=== PATIENT | female | born 1935 | race Caucasian/White ===

== ENCOUNTER 2019-01-28 18:57 | Inpatient (IN) | payer MEDICARE, OTHER ==
[~2019-01-28] VITALS: Ht 139.7 cm; Wt 42.6 kg
[2019-01-28 20:00] VITALS: BP 125/73
[2019-01-28] MEDS ORDERED: MAGNESIUM HYDROXIDE 30 ML UDC PO PRN (20:30)
[2019-01-28] MEDS ORDERED: MAG HYDROX/AL HYDROX/SIMETH 30 ML UDC PO PRN (20:30)
[2019-01-28] MEDS ORDERED: TEMAZEPAM 7.5 MG CAPSULE PO PRN (20:30)
[2019-01-28] MEDS ORDERED: clonazePAM 0.5 MG TABLET PO PRN (20:30)
[2019-01-28] MEDS ORDERED: ACETAMINOPHEN 325 MG TABLET PO PRN (20:30)
[2019-01-28] MEDS ORDERED: ALBU2.5V38 NEB (20:37)
[2019-01-28] MEDS ORDERED: IPRA0.2S49 NEB (20:38)
[2019-01-28] MEDS ORDERED: MIRT15TA7 PO (20:39)
[2019-01-28] MEDS ORDERED: POTA20TA83 PO (20:42)
[2019-01-28] MEDS ORDERED: APIX2.5T PO (20:43)
[2019-01-28] MEDS ORDERED: FURO40TA5 PO (20:44)
[2019-01-28] MEDS ORDERED: METO-357 PO (20:45)
[2019-01-28] MEDS ORDERED: SPIR25TA6 PO (20:45)
[2019-01-28] MEDS ORDERED: ALEN70TA6 PO (20:47)
[2019-01-28] MEDS ORDERED: BECL10.6 IH (20:49)
[2019-01-28] MEDS ORDERED: DOCU100C36 PO (20:56)
[2019-01-28] MEDS ORDERED: DILT-32 PO (20:56)
[2019-01-28] MEDS ORDERED: FLUT16SP BNOSTRILS (20:57)
[2019-01-28] MEDS ORDERED: MONT10TA22 PO (20:58)
[2019-01-28] MEDS ORDERED: POLY255P19 PO (20:59)
[2019-01-28] MEDS ORDERED: PRAV40TA PO (21:00)
[2019-01-28] MEDS ORDERED: SENN-168 PO (21:02)
[2019-01-28] MEDS ORDERED: OMEP20CA10 PO (21:05)
[2019-01-28 23:00] VITALS: BP 120/68
[2019-01-28] MEDS ORDERED: IPRATROPIUM NEB FS 0.5 MG/2.5 ML AMPUL.NEB NEB PRN (23:00)
--- NOTE | 2019-01-28 23:34 | NUR ---
ADMISSION NOTES: ADMITTED THIS 83 Y/O FEMALE PATIENT ADMIT FROM [facility], PT IS ON 5150 HOLD FOR GRAVELY DISABLE , PER HOLD PT. UNABLE TO FORMLATE A PLAN FOR SELF CARE, UPON FACE TO FACE ASSESSMENT PATIENT IS A&O X1 ,2 DISHELVED, DISORGINZE, EASILY GETS AGITATED, PT. IS POOR HISTORIAN, POOR INSIGHT ,POOR JUDGEMENT , POOR HYGINE , PT. REFUSED TO TAKE SHOWER AT THIS TIME , AND PT. REFUSED TO SIGN ADMISSION PAPERS ,V/S MD NASIR AWARE AND NOTIFIED OF THE ADMISSION, SKIN ASSESSMENT DONE . PICTURE TAKEN AND PLACED IN THE CHART, ENCOURAGED PT. VERBALIZED ANY FEELING CONCERN TO STAFF, ORIENT TO UNIT POLICY, WILL CONTINUE TO MONITOR FOR Q15 SAFETY AND BEHAVIOR.
[2019-01-29] MEDS ORDERED: ALBUTEROL FS 2.5 MG/3 ML VIAL.NEB NEB PRN (01:30)
[2019-01-29 07:09] LABS: BASOPHILS # (AUTO) 0.1 /CMM (0.0-0.2); BASOPHILS % (AUTO) 1.4 % (0.0-2.0); EOSINOPHILS % (AUTO) 1.5 % (0.0-6.0); HEMATOCRIT 32 % (33-45); HEMOGLOBIN 10.5 g/dL (11.5-14.8); LYMPHOCYTES # (AUTO) 1.5 /CMM (0.8-4.8); LYMPHOCYTES % (AUTO) 24.3 % (20.0-44.0); MEAN CORPUSCULAR HGB CONC 33 g/dl (31.0-36.0); MEAN CORPUSCULAR VOLUME 84 fL (82-100); MONOCYTES # (AUTO) 0.5 /CMM (0.1-1.30); NEUTROPHILS % (AUTO) 64.8 % (43.0-81.0); PLATELET COUNT (AUTO) 320 /CMM (150-450); RED BLOOD CELL COUNT(AUTO) 3.86 MIL/uL (4.0-5.2); WHITE BLOOD COUNT (AUTO) 6.2 K/uL (4.3-11.0)
[2019-01-29 07:19] LABS: CHOLESTEROL 137 mg/dL (<200); HDL CHOLESTEROL 36 mg/dL (40-60); LDL 90 mg/dL (0-99); TRIGLYCERIDES 97 mg/dL (30-150)
[2019-01-29 07:21] LABS: ALANINE AMINOTRANSFERASE 15 U/L (12-78); ALBUMIN 2.6 g/dL (3.4-5.0); ALKALINE PHOSPHATASE 146 U/L (46-116); ASPARTATE AMINOTRANSFERASE 18 U/L (15-37); BILIRUBIN,TOTAL 0.8 mg/dL (0.2-1.0); CALCIUM, SERUM 8.7 mg/dL (8.5-10.1); CARBON DIOXIDE 24 mmol/L (21-32); CHLORIDE 104 mmol/L (98-107); CREATININE 0.9 mg/dL (0.6-1.3); GLUCOSE 103 mg/dL (74-106); POTASSIUM 3.5 mmol/L (3.5-5.1); SODIUM SERUM 140 mmol/L (136-145); TOTAL PROTEIN, SERUM 6.2 g/dL (6.4-8.2); UREA NITROGEN, BLOOD 18 mg/dL (7-18)
[2019-01-29] MEDS ORDERED: OMEPRAZOLE 20 MG CAPSULE.DR PO SCH (07:30)
[2019-01-29] MEDS: DOCUSATE SODIUM 100 MG CAPSULE PO SCH ×2 (09:00→17:00)
[2019-01-29] MEDS: FLUTICASONE PROPIONATE 16 GM BOTTLE NS SCH (09:00)
[2019-01-29] MEDS: SENNOSIDES 8.6 MG TABLET PO SCH ×2 (09:00→17:00)
[2019-01-29] MEDS: DILTIAZEM HCL CD 120 MG PO SCH ×2 (09:00→17:00)
[2019-01-29] MEDS: METOPROLOL SUCCINATE 50 MG TAB.SR.24H PO SCH ×2 (09:00→17:00)
[2019-01-29] MEDS: MONTELUKAST SODIUM (10MG) 10 MG TABLET PO SCH (09:00)
[2019-01-29] MEDS: APIXABAN 2.5 MG TABLET PO SCH ×2 (09:00→17:00)
[2019-01-29] MEDS: SPIRONOLACTONE 25 MG TABLET PO SCH (09:00)
[2019-01-29] MEDS: POLYETHYLENE GLYCOL 3350 17 GM POWD.PACK PO SCH (09:00)
[2019-01-29] MEDS: FUROSEMIDE 40 MG TABLET PO SCH (09:00)
[2019-01-29] MEDS: PANTOPRAZOLE 40 MG TABLET.DR PO SCH (09:20)
--- NOTE | 2019-01-29 09:38 | NUR ---
RN NOTES PATIENT REFUSED ALL MEDICATIONS. EXPLAINED IMPORTANCE OF MEDICATION COMPLIANCE. PATIENT CONTINUED TO REFUSED MEDICATIONS.
[2019-01-29] MEDS: FLUTICASONE/VILANTEROL 1 EACH BLST.W.DEV IH SCH (11:00)
--- NOTE | 2019-01-29 11:54 | NUR ---
RN NOTES PT REFUSED BREO INHALER. EXPLAINED TO PATIENT THE IMPORTANCE OF USING INHALER. PT CONTINUED TO REFUSE.
[2019-01-29] MEDS: QUETIAPINE FUMARATE 25 MG TABLET PO SCH (15:00)
--- NOTE | 2019-01-29 15:59 | NUR ---
Group Note: Pt was unable to participate in group therapy due to her confusion. Pt stated that she was not aware of her current situation and appeared to be disheveled and disorganized.
[2019-01-29 16:00] VITALS: BP 110/71
[2019-01-29] MEDS: ATORVASTATIN 10 MG TABLET PO SCH (17:35)
[2019-01-29 20:00] VITALS: BP 120/73
[2019-01-29] MEDS: MIRTAZAPINE 15 MG TABLET PO SCH (21:20)
[2019-01-30 08:00] VITALS: BP 121/96
[2019-01-30] MEDS: POLYETHYLENE GLYCOL 3350 17 GM POWD.PACK PO SCH (09:00)
[2019-01-30] MEDS: PANTOPRAZOLE 40 MG TABLET.DR PO SCH (09:13)
[2019-01-30] MEDS: SPIRONOLACTONE 25 MG TABLET PO SCH (09:13)
[2019-01-30] MEDS: SENNOSIDES 8.6 MG TABLET PO SCH ×2 (09:13→17:00)
[2019-01-30] MEDS: MONTELUKAST SODIUM (10MG) 10 MG TABLET PO SCH (09:13)
[2019-01-30] MEDS: QUETIAPINE FUMARATE 25 MG TABLET PO SCH ×2 (09:14→17:00)
[2019-01-30] MEDS: METOPROLOL SUCCINATE 50 MG TAB.SR.24H PO SCH ×2 (09:14→17:00)
[2019-01-30] MEDS: FUROSEMIDE 40 MG TABLET PO SCH (09:14)
[2019-01-30] MEDS: DOCUSATE SODIUM 100 MG CAPSULE PO SCH ×2 (09:15→17:00)
[2019-01-30] MEDS: DILTIAZEM HCL CD 120 MG PO SCH ×2 (09:15→17:00)
[2019-01-30] MEDS: APIXABAN 2.5 MG TABLET PO SCH ×2 (09:19→17:00)
[2019-01-30] MEDS: FLUTICASONE/VILANTEROL 1 EACH BLST.W.DEV IH SCH (09:20)
[2019-01-30] MEDS: FLUTICASONE PROPIONATE 16 GM BOTTLE NS SCH (09:21)
--- NOTE | 2019-01-30 11:41 | NUR ---
PATTI called the pt's friend, Erica ([phone]), and was unable to leave a message due to her mailbox being full.
--- NOTE | 2019-01-30 11:42 | NUR ---
Initial Discharge Plan: Pt currently resides in an apartment with her friend, Alexandrea, but she cannot remember the phone number for Alexandrea. Pts apartment is located at [address] [place] [address]; ([phone]). Per pt, she would like to return to her home. PATTI will work with the MD and the pt regarding appropriate discharge planning. SW will form a safe and proper discharge.
--- NOTE | 2019-01-30 11:43 | NUR ---
PATTI called the pt's friend, Erica ([phone]), and was unable to leave a message due to her mailbox being full.
--- NOTE | 2019-01-30 14:18 | NUR ---
PATTI called the pt's friend, Erica ([phone]), and was unable to leave a message due to her mailbox being full.
[2019-01-30 16:00] VITALS: BP 112/66
[2019-01-30] MEDS: ATORVASTATIN 10 MG TABLET PO SCH (17:38)
--- NOTE | 2019-01-30 18:55 | NUR ---
Arrived and received patient in bedroom sleeping. Patient is alert and oriented x2. Patient is Turkish speaking primarily with some Malay. Patient is not medication compliant. Patient is confused, disorganized and withdrawn. Redirected and reoriented patient as needed. Q15 minute safety and behavior checks as needed. Assisted patient in completing ADLs as tolerated. Patient is in bedroom resting with no distress noted at this time. Will continue with plan of care.
[2019-01-30 20:00] VITALS: BP 107/55
[2019-01-30] MEDS: MIRTAZAPINE 15 MG TABLET PO SCH (21:30)
[2019-01-31] MEDS: PANTOPRAZOLE 40 MG TABLET.DR PO SCH (07:30)
[2019-01-31 08:00] VITALS: BP 120/72
[2019-01-31] MEDS: SENNOSIDES 8.6 MG TABLET PO SCH ×2 (09:00→17:05)
[2019-01-31] MEDS: FLUTICASONE PROPIONATE 16 GM BOTTLE NS SCH (09:00)
[2019-01-31] MEDS: DOCUSATE SODIUM 100 MG CAPSULE PO SCH ×2 (09:00→17:05)
[2019-01-31] MEDS: FUROSEMIDE 40 MG TABLET PO SCH (09:00)
[2019-01-31] MEDS: FLUTICASONE/VILANTEROL 1 EACH BLST.W.DEV IH SCH (09:00)
[2019-01-31] MEDS: QUETIAPINE FUMARATE 25 MG TABLET PO SCH ×2 (09:00→17:00)
[2019-01-31] MEDS: POLYETHYLENE GLYCOL 3350 17 GM POWD.PACK PO SCH (09:00)
[2019-01-31] MEDS: SPIRONOLACTONE 25 MG TABLET PO SCH (09:00)
[2019-01-31] MEDS: MONTELUKAST SODIUM (10MG) 10 MG TABLET PO SCH (09:00)
[2019-01-31] MEDS: APIXABAN 2.5 MG TABLET PO SCH ×2 (10:41→17:07)
[2019-01-31] MEDS: METOPROLOL SUCCINATE 50 MG TAB.SR.24H PO SCH ×2 (10:45→17:00)
[2019-01-31] MEDS: DILTIAZEM HCL CD 120 MG PO SCH ×2 (10:46→17:00)
--- NOTE | 2019-01-31 13:20 | NUR ---
gloria velez concrete pavement installer in to see pt.
[2019-01-31 16:00] VITALS: BP 108/68
[2019-01-31] MEDS: ATORVASTATIN 10 MG TABLET PO SCH (17:05)
--- NOTE | 2019-01-31 17:30 | NUR ---
brendan held today and pt. still very groggy.
[2019-01-31 20:18] VITALS: BP 100/67
[2019-01-31] MEDS: MIRTAZAPINE 15 MG TABLET PO SCH (21:18)
[2019-02-01 08:00] VITALS: BP_SYST 102; BP_DIAS 53; BP_DIAS 55
[2019-02-01] MEDS: FLUTICASONE/VILANTEROL 1 EACH BLST.W.DEV IH SCH (09:00)
[2019-02-01] MEDS: FLUTICASONE PROPIONATE 16 GM BOTTLE NS SCH (09:00)
[2019-02-01] MEDS: POLYETHYLENE GLYCOL 3350 17 GM POWD.PACK PO SCH (09:30)
[2019-02-01] MEDS: SPIRONOLACTONE 25 MG TABLET PO SCH (09:31)
[2019-02-01] MEDS: PANTOPRAZOLE 40 MG TABLET.DR PO SCH (09:31)
[2019-02-01] MEDS: FUROSEMIDE 40 MG TABLET PO SCH (09:32)
[2019-02-01] MEDS: METOPROLOL SUCCINATE 50 MG TAB.SR.24H PO SCH ×2 (09:32→17:03)
[2019-02-01] MEDS: SENNOSIDES 8.6 MG TABLET PO SCH ×2 (09:32→17:00)
[2019-02-01] MEDS: QUETIAPINE FUMARATE 25 MG TABLET PO SCH ×2 (09:33→17:02)
[2019-02-01] MEDS: DOCUSATE SODIUM 100 MG CAPSULE PO SCH ×2 (09:33→17:00)
[2019-02-01] MEDS: MONTELUKAST SODIUM (10MG) 10 MG TABLET PO SCH (09:33)
[2019-02-01] MEDS: DILTIAZEM HCL CD 120 MG PO SCH ×2 (09:33→17:11)
[2019-02-01] MEDS: APIXABAN 2.5 MG TABLET PO SCH ×2 (09:41→17:09)
[2019-02-01 16:00] VITALS: BP 110/57
[2019-02-01] MEDS: ATORVASTATIN 10 MG TABLET PO SCH (17:06)
--- NOTE | 2019-02-01 18:22 | NUR ---
RN NOTES PATIENT COMPLIANT WITH ALL MEDICATIONS DURING THE WHOLE SHIFT. ALL NEEDS MET.
[2019-02-01 20:07] VITALS: BP 96/52
[2019-02-01] MEDS: MIRTAZAPINE 15 MG TABLET PO SCH (22:00)
[2019-02-02] MEDS ORDERED: ALENDRONATE 70 MG TABLET PO SCH (07:30)
[2019-02-02] MEDS: PANTOPRAZOLE 40 MG TABLET.DR PO SCH (07:30)
[2019-02-02 08:00] VITALS: BP 96/59
[2019-02-02] MEDS: SPIRONOLACTONE 25 MG TABLET PO SCH (09:00)
[2019-02-02] MEDS: FUROSEMIDE 40 MG TABLET PO SCH (09:00)
[2019-02-02] MEDS: DILTIAZEM HCL CD 120 MG PO SCH ×2 (09:00→16:49)
[2019-02-02] MEDS: FLUTICASONE/VILANTEROL 1 EACH BLST.W.DEV IH SCH (09:00)
[2019-02-02] MEDS: FLUTICASONE PROPIONATE 16 GM BOTTLE NS SCH (09:00)
[2019-02-02] MEDS: METOPROLOL SUCCINATE 50 MG TAB.SR.24H PO SCH ×2 (09:00→16:48)
[2019-02-02] MEDS: MONTELUKAST SODIUM (10MG) 10 MG TABLET PO SCH (09:35)
[2019-02-02] MEDS: POLYETHYLENE GLYCOL 3350 17 GM POWD.PACK PO SCH (09:35)
[2019-02-02] MEDS: SENNOSIDES 8.6 MG TABLET PO SCH ×2 (09:35→16:48)
[2019-02-02] MEDS: DOCUSATE SODIUM 100 MG CAPSULE PO SCH ×2 (09:36→16:48)
[2019-02-02] MEDS: APIXABAN 2.5 MG TABLET PO SCH ×2 (09:37→16:54)
[2019-02-02] MEDS: QUETIAPINE FUMARATE 25 MG TABLET PO SCH ×2 (09:51→16:48)
[2019-02-02 09:52] VITALS: BP 114/69
--- NOTE | 2019-02-02 10:30 | NUR ---
PATTI met with the pt's friend, Erica ([phone]), and she stated that there is another friend of theirs by the name of Alexandrea. She stated that Alexandrea's works for a alf facility in [place] near them and that the friends would like the pt to be sent there. PATTI stated that she would call Alexandrea and discuss this plan with her.
--- NOTE | 2019-02-02 14:38 | NUR ---
Group Note: Pt was unable to participate in group therapy due to her confusion. Pt stated that wanted to leave the hospital and appeared to be disheveled and disorganized.
--- NOTE | 2019-02-02 15:49 | NUR ---
SW called pt's friend, Alexandrea ([phone]), and left her a voicemail stating that she would like to speak to her regarding the pts discharge plan.
[2019-02-02 16:00] VITALS: BP 108/68
[2019-02-02] MEDS: ATORVASTATIN 10 MG TABLET PO SCH (17:04)
[2019-02-02 19:57] VITALS: BP 96/66
[2019-02-02] MEDS: MIRTAZAPINE 15 MG TABLET PO SCH (21:16)
[2019-02-03] MEDS: PANTOPRAZOLE 40 MG TABLET.DR PO SCH (07:30)
[2019-02-03 08:00] VITALS: BP 107/73
[2019-02-03] MEDS: DILTIAZEM HCL CD 120 MG PO SCH ×2 (08:43→16:59)
[2019-02-03] MEDS: FLUTICASONE/VILANTEROL 1 EACH BLST.W.DEV IH SCH (08:44)
[2019-02-03] MEDS: DOCUSATE SODIUM 100 MG CAPSULE PO SCH ×2 (08:45→17:00)
[2019-02-03] MEDS: APIXABAN 2.5 MG TABLET PO SCH ×2 (08:45→17:00)
[2019-02-03] MEDS: SPIRONOLACTONE 25 MG TABLET PO SCH (08:45)
[2019-02-03] MEDS: POLYETHYLENE GLYCOL 3350 17 GM POWD.PACK PO SCH (08:46)
[2019-02-03] MEDS: SENNOSIDES 8.6 MG TABLET PO SCH ×2 (08:46→17:00)
[2019-02-03] MEDS: QUETIAPINE FUMARATE 25 MG TABLET PO SCH ×2 (08:46→17:00)
[2019-02-03] MEDS: FUROSEMIDE 40 MG TABLET PO SCH (08:46)
[2019-02-03] MEDS: MONTELUKAST SODIUM (10MG) 10 MG TABLET PO SCH (08:46)
[2019-02-03] MEDS: METOPROLOL SUCCINATE 50 MG TAB.SR.24H PO SCH ×2 (08:46→16:59)
[2019-02-03] MEDS: FLUTICASONE PROPIONATE 16 GM BOTTLE NS SCH (09:11)
[2019-02-03 16:00] VITALS: BP 120/62
--- NOTE | 2019-02-03 16:16 | NUR ---
Group Note: SW prompted pt to participate in group therapy pt was asleep and did not wake up.
[2019-02-03] MEDS: ATORVASTATIN 10 MG TABLET PO SCH (17:00)
[2019-02-03 19:54] VITALS: BP 103/61
[2019-02-03] MEDS: MIRTAZAPINE 15 MG TABLET PO SCH (21:16)
[2019-02-04] MEDS: PANTOPRAZOLE 40 MG TABLET.DR PO SCH (07:30)
[2019-02-04 08:00] VITALS: BP 100/57
[2019-02-04] MEDS: DOCUSATE SODIUM 100 MG CAPSULE PO SCH ×2 (08:59→16:40)
[2019-02-04] MEDS: SENNOSIDES 8.6 MG TABLET PO SCH ×2 (08:59→16:37)
[2019-02-04] MEDS: FUROSEMIDE 40 MG TABLET PO SCH (09:00)
[2019-02-04] MEDS: QUETIAPINE FUMARATE 25 MG TABLET PO SCH ×2 (09:00→16:37)
[2019-02-04] MEDS: DILTIAZEM HCL CD 120 MG PO SCH ×2 (09:00→16:39)
[2019-02-04] MEDS: MONTELUKAST SODIUM (10MG) 10 MG TABLET PO SCH (09:00)
[2019-02-04] MEDS: SPIRONOLACTONE 25 MG TABLET PO SCH (09:00)
[2019-02-04] MEDS: FLUTICASONE/VILANTEROL 1 EACH BLST.W.DEV IH SCH (09:00)
[2019-02-04] MEDS: METOPROLOL SUCCINATE 50 MG TAB.SR.24H PO SCH ×2 (09:00→16:39)
[2019-02-04] MEDS: APIXABAN 2.5 MG TABLET PO SCH ×2 (09:04→16:38)
[2019-02-04] MEDS: POLYETHYLENE GLYCOL 3350 17 GM POWD.PACK PO SCH (09:05)
[2019-02-04] MEDS: FLUTICASONE PROPIONATE 16 GM BOTTLE NS SCH (09:08)
--- NOTE | 2019-02-04 11:51 | NUR ---
PATTI faxed a referral to [facility] with attention to Maxi to the fax number: [phone].
--- NOTE | 2019-02-04 11:52 | NUR ---
PATTI faxed a referral to [facility] with attention to Winifred to the fax number: [phone].
--- NOTE | 2019-02-04 11:54 | NUR ---
SW called pt's friend, Alexandrea ([phone]), and left her a voicemail stating that she would like to speak to her regarding the pts discharge plan.
--- NOTE | 2019-02-04 15:24 | NUR ---
Alexandrea ([phone]), pt's friend, called the SW and stated that the name of the [facility] facility that she would like the pt to be sent to is [facility].
[2019-02-04 16:00] VITALS: BP 103/65
[2019-02-04] MEDS: ATORVASTATIN 10 MG TABLET PO SCH (17:19)
[2019-02-04 20:03] VITALS: BP 96/63
[2019-02-04] MEDS: MIRTAZAPINE 15 MG TABLET PO SCH (21:00)
--- NOTE | 2019-02-04 21:00 | NUR ---
REFUSED REMERON 15 MG TEE, ASKED WHY SHE'S REFUSING HER MEDICATION,, NO ANSWER, BUT HER FACE GRIMACING.
--- NOTE | 2019-02-04 22:00 | NUR ---
OFFERED SLEEPING PILL, REFUSED X2
[2019-02-05 08:00] VITALS: BP 105/63
[2019-02-05] MEDS: FLUTICASONE/VILANTEROL 1 EACH BLST.W.DEV IH SCH (08:19)
[2019-02-05] MEDS: POLYETHYLENE GLYCOL 3350 17 GM POWD.PACK PO SCH (08:20)
[2019-02-05] MEDS: FLUTICASONE PROPIONATE 16 GM BOTTLE NS SCH (08:20)
[2019-02-05] MEDS: PANTOPRAZOLE 40 MG TABLET.DR PO SCH (08:21)
[2019-02-05] MEDS: SPIRONOLACTONE 25 MG TABLET PO SCH (08:22)
[2019-02-05] MEDS: DILTIAZEM HCL CD 120 MG PO SCH (08:23)
[2019-02-05 08:24] VITALS: BP 105/63
[2019-02-05] MEDS: FUROSEMIDE 40 MG TABLET PO SCH (08:24)
[2019-02-05] MEDS: METOPROLOL SUCCINATE 50 MG TAB.SR.24H PO SCH (08:24)
[2019-02-05] MEDS: MONTELUKAST SODIUM (10MG) 10 MG TABLET PO SCH (08:25)
[2019-02-05] MEDS: QUETIAPINE FUMARATE 25 MG TABLET PO SCH (08:25)
[2019-02-05] MEDS: SENNOSIDES 8.6 MG TABLET PO SCH (08:26)
[2019-02-05] MEDS: DOCUSATE SODIUM 100 MG CAPSULE PO SCH (08:26)
[2019-02-05] MEDS: APIXABAN 2.5 MG TABLET PO SCH (08:29)
--- NOTE | 2019-02-05 09:17 | NUR ---
Oliva ([phone]) from [facility] contacted the and stated that the pt was accepted to their facility.
--- NOTE | 2019-02-05 09:19 | NUR ---
Alexandrea ([phone]) from [facility][Note 3] called the SW and stated that the pt was accepted to their facility.
--- NOTE | 2019-02-05 09:24 | NUR ---
PATTI faxed a referral to [facility] with attention to admissions to the fax number: [phone].
--- NOTE | 2019-02-05 15:20 | NUR ---
GPS/RN-NOTES PATIENT WAS DISCHARGE TO HOME TODAY. DR. LAKE ( PSYCHIATRIST) MADE AWARE WITH ORDERS, ALL DISCHARGE MEDICATIONS WAS REVIEWED WITH THE PATIENT WITH UNDERSTANDING.PATIENT STATED " I HAVE A LOT OF MEDICATIONS AT HOME, I DON'T NEED ANY PRESCRIPTIONS". PSYCH RX WAS STILL GIVEN TO THE PATIENT.DR. ARGUETA ( COMMUNITY HEALTH NURSE) MADE AWARE OF THE DISCHARGE WITH T.O ORDER OF HOME HEALTH, NO PRESCRIPTIONS GIVEN DUE TO PATIENT STATED " I HAVE A LOT OF MEDICATIONS AT HOME, I DON'T NEED ANY PRESCRIPTIONS".ELECTRIC SWITCH TESTER INSTRUCTED PATIENT TO FOLLOW UP WITH PRIMARY PHYSICIAN AND PSYCHIATRIST,ALSO INSTRUCTED PATIENT TO CALL 911 OR GO TO THE NEAREST EMERGENCY FACILITY FOR EMERGENCY .PATIENT DID NOT VERBALIZE SI/HI,DENIES VISUAL AUDITORY HALLUCINATIONS AT THE TIME OF DISCHARGE. 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 ASSISTED PATIENT IN THE LOBBY BY ONE RECTIFICATION PRINTER STAFF FOR SAFETY.PATIENT LEFT WITH ALL BELONGINGS AND WAS ENDORSE AND GIVEN TO NOLBERTO SO.
--- NOTE | 2019-02-05 15:34 | NUR ---
PATTI called pt's friend, Alexandrea ([phone]), and informed her that the pt is being discharged today due to the PC hearing. She stated that she is working and therefore their friend Erica can come pick her up.
--- NOTE | 2019-02-05 15:35 | NUR ---
Erica ([phone]), called the SW, and PATTI directed it to the croatian speaking SW, Ifeoma, to arrange the discharge time and process.
--- NOTE | 2019-02-05 15:36 | NUR ---
PATTI faxed a home health referral to [facility] to the fax number: [phone].
--- NOTE | 2019-02-05 16:21 | NUR ---
Discharge Note: Pt was discharged back home to [address] [place] [address]; ([phone]). Pt was picked up by her friend, Erica ([phone]), around 3PM. Upon discharge, the pt appeared to be in a euthymic mood and presented with a calm affect. Pt denied both suicidal and homicidal ideation when SW asked her with an seismic interpreter present. Pt was referred to [facility]. Pt will be under the care of [facility] located [address] [place] [address] [address], [place] [address]; for psychiatric services. Pt will also be under the care of her mail processing equipment mechanic, Dr Oliveira, located at [address] [place] [address] [id number], [place] [address]; phone: ; a fax was sent to: [phone].
== END 2019-02-05 15:15 | disposition home or self-care (01) | DRG 885 ==
LOC: GPS 18:57
PROVIDERS: ADMIT Psychiatry & Neurology Psychiatry; ATTEND Hospitalist
DX: F33.3 Major depressive disorder, recurrent, severe with psychotic symptoms (principal); N18.9 Chronic kidney disease, unspecified; G93.41 Metabolic encephalopathy; F23 Brief psychotic disorder; D68.59 Other primary thrombophilia; I13.0 Hypertensive heart and chronic kidney disease with heart failure and stage 1 through stage 4 chronic kidney disease, or unspecified chronic kidney disease; I50.32 Chronic diastolic (congestive) heart failure; I25.10 Atherosclerotic heart disease of native coronary artery without angina pectoris; K21.9 Gastro-esophageal reflux disease without esophagitis; F03.90 Unspecified dementia, unspecified severity, without behavioral disturbance, psychotic disturbance, mood disturbance, and anxiety; I48.91 Unspecified atrial fibrillation; E78.5 Hyperlipidemia, unspecified; D63.8 Anemia in other chronic diseases classified elsewhere; J45.909 Unspecified asthma, uncomplicated; Z79.01 Long term (current) use of anticoagulants; Z91.14 Patient's other noncompliance with medication regimen
CPT/HCPCS: 36415; 80053-TC; 80061-TC; 85025-TC; 85610-TC; 87081-TC; 97116-TC; 97530-TC